=== PATIENT | female | born 1950 | race Caucasian/White ===

== ENCOUNTER → 2016-08-27 | Outpatient (CLI) | payer MEDICARE ==
[2015-08-07 09:10] VITALS: BP 167/84
[~2016-08-27] MED LIST: DIAZ10TA PO; FLUO20CA16 PO; LEVO100T5 PO; MEPE50TA2 PO
--- NOTE | 2016-08-27 11:31 | RAD ---
Indication screening for osteoporosis. The lumbar spine and right hip were evaluated. No prior bone density analysis is available. In the lumbar spine the average bone mineral density is approximately 1 g/cc. The T score of -1.6 is indicative of osteopenia. In the right hip the average bone mild density is approximately 0.76 g/cc. There is more focal demineralization in the intertrochanteric area where the average bone mineral density is approximately 0.5 g/cc. The overall T score is -2 indicative of osteopenia. The area of the intertrochanteric region has a T score of -3.4. IMPRESSION: Osteopenic lumbar spine. Osteopenic/osteoporotic right hip
== END | disposition home or self-care (01) ==
LOC: DXRAD 10:09
PROVIDERS: ATTEND Nurse Practitioner Family
DX: Z13.820 Encounter for screening for osteoporosis (principal); M85.88 Other specified disorders of bone density and structure, other site; Z78.0 Asymptomatic menopausal state; Z72.0 Tobacco use
CPT/HCPCS: 77080

== ENCOUNTER → 2016-11-05 | Outpatient (CLI) | payer MEDICARE ==
[2015-08-07 09:10] VITALS: BP 167/84
[~2016-11-05] MED LIST changes: +IOHEXOL 240 MG/ML 50ML VIAL. ONE; +IOHEXOL 300 MG/ML 75 ML VIAL. IV ONE
--- NOTE | 2016-11-05 12:09 | RAD ---
CT abdomen and pelvis 11/05/2016 at 0918 hours Indication: Abdominal pain with diarrhea Comparison: CT abdomen/pelvis 12/18/2010 Technique: Multiple axial CT images of the abdomen and pelvis were obtained after the administration of intravenous contrast. Oral contrast was administered. 75 mL's of Omnipaque 300 was administered intravenously. Findings: Lung bases are clear. Heart size is within normal limits. Simple 7 mm cyst is identified in the left hepatic lobe. Stable 14 mm hemangioma in the right hepatic lobe. Mild intrahepatic and extrahepatic periductal dilatation, as expected with cholecystectomy changes. The spleen is normal. Bilateral adrenal glands are normal. Gallbladder is surgically absent. Pancreas is normal in appearance. No pancreatic ductal dilatation. No peripancreatic inflammatory changes. The abdominal aorta is normal in course and caliber. IVC is patent. There are no enlarged lymph nodes in the abdomen or pelvis. There is no free intraperitoneal air. No free fluid within the abdomen or pelvis. The kidneys enhance symmetrically. Stable 8 mm fat-containing lesion in the left kidney compatible with an angiomyolipoma. There is no hydronephrosis. Small and large bowel are normal in caliber. The appendix is not definitively visualized, however no inflammatory changes identified in the right lower quadrant. No pericolonic inflammatory changes are present. The urinary bladder is normal in appearance. No adnexal masses are identified. No suspicious osseous lesions are identified. Impression: 1. No acute abnormality is identified in the abdomen or pelvis. 2. Stable 14 mm hemangioma in the right hepatic lobe. 3. Stable appearance of an 8 mm angiomyolipoma in the midpole the left kidney. 4. Cholecystectomy changes are identified with expected mild intrahepatic and extrahepatic biliary dilatation. PQRS Compliance Statement: One or more of the following individualized dose reduction techniques were utilized for this examination: 1. Automated exposure control 2. Adjustment of the mA and/or kV according to patient size 3. Use of iterative reconstruction technique
== END | disposition home or self-care (01) ==
LOC: CT 07:37
PROVIDERS: ATTEND Internal Medicine Gastroenterology
DX: D17.71 Benign lipomatous neoplasm of kidney (principal); K76.89 Other specified diseases of liver; D18.09 Hemangioma of other sites; N28.89 Other specified disorders of kidney and ureter; Z87.891 Personal history of nicotine dependence; Z90.49 Acquired absence of other specified parts of digestive tract
CPT/HCPCS: 74177; Q9966; Q9967

== ENCOUNTER → 2017-06-05 | Outpatient (CLI) | payer MEDICARE ==
[2015-08-07 09:10] VITALS: BP 167/84
[~2017-06-05] MED LIST changes: -IOHEXOL 240 MG/ML 50ML VIAL. ONE; -IOHEXOL 300 MG/ML 75 ML VIAL. IV ONE
--- NOTE | 2017-06-05 10:33 | RAD ---
Chest, 2 views, 06/05/2017: History: Cough Comparison is made to a study from 05/28/2011. The heart size and pulmonary vascularity are normal. There is mild right basilar linear scarring or atelectasis. No pulmonary consolidation is seen. There is no evidence of pleural fluid. Mild spurring is present in the spine. IMPRESSION: 1. Mild right basilar linear scarring or atelectasis. 2. Otherwise no acute abnormality is detected.
== END | disposition home or self-care (01) ==
LOC: PMG 09:58
PROVIDERS: ATTEND Physician Assistant Medical
DX: R09.89 Other specified symptoms and signs involving the circulatory and respiratory systems (principal); Z87.891 Personal history of nicotine dependence
CPT/HCPCS: 71046

== ENCOUNTER → 2018-12-06 | Outpatient (CLI) | payer MEDICARE, OTHER ==
[2015-08-07 09:10] VITALS: BP 167/84
--- NOTE | 2018-12-13 10:24 | RAD ---
DATE: 12/13/2018. EXAM: MAMMO [facility] SCREENING BILATERAL HISTORY: Routine screening. COMPARISON: Previous mammogram from 2017. This study was interpreted with the benefit of Computerized Aided Detection (CAD). FINDINGS: Breast Density: DENSE The breast Parenchyma is dense, which could reduce the sensitivity of mammography. Breast parenchyma level density D.. The skin and nipples are within normal limits. No suspicious ossifications, spiculated mass or area of architectural distortion. IMPRESSION: No mammographic evidence of malignancy. BI-RADS CATEGORY: 2 BENIGN FINDING(S) RECOMMENDED FOLLOW-UP: 12M 12 MONTH FOLLOW-UP PQRS compliance statement: Patient information was entered into a reminder system with a target due date for the next mammogram. Mammography is a sensitive method for finding small breast cancers, but it does not detect them all and is not a substitute for careful clinical examination. A negative mammogram does not negate a clinically suspicious finding and should not result in delay in biopsying a clinically suspicious abnormality. "Our facility is accredited by the [employer] Mammography Program."
== END | disposition home or self-care (01) ==
LOC: MAMMO 12:45
PROVIDERS: ATTEND Nurse Practitioner Family
DX: Z12.31 Encounter for screening mammogram for malignant neoplasm of breast (principal)
CPT/HCPCS: 77063; 77067